=== PATIENT | male | born 1980 | race Caucasian/White ===

== ENCOUNTER 2019-02-11 12:29 | Emergency (ER) | payer OTHER ==
[2019-02-11 12:39] VITALS: BP 122/81
[2019-02-11] MEDS ORDERED: Ondansetron 4 MG/2 ML SDV IVPUSH ONE (12:55)
[2019-02-11] MEDS ORDERED: Sodium Chloride 0.9% 10 ML Syringe FLUSH PRN (12:55)
[2019-02-11] MEDS ORDERED: Ketorolac 30 MG/ML SDV IVPUSH ONE (12:55)
[2019-02-11] MEDS ORDERED: HYDROmorphone 0.5 MG/0.5 ML Syringe IVPUSH ONE (12:56)
[2019-02-11] MEDS ORDERED: Sodium Chloride 0.9% 1,000 ML IV SCH (13:00)
--- NOTE | 2019-02-11 13:01 | EDM.PDOC ---
ED HPI GENERAL MEDICAL PROBLEM - General Chief Complaint: Flank Pain Stated Complaint: POSSIBLE KINDNEY STONE Time Seen by Provider: 02/11/19 12:37 Source of Information: Reports: Patient History Limitations: Reports: No Limitations - History of Present Illness INITIAL COMMENTS - FREE TEXT/NARRATIVE: The patient presents with right flank pain that radiates to his right abdomen and right groin. He says it does sting when he urinates. He noticed no blood. He has no fever, chills, cough, nausea or vomiting. He has no diarrhea. He has no history of kidney stones. He has no other medical problems. Onset: Gradual Duration: Hour(s): Location: Reports: Abdomen (Right lower abdomen), Back (right flank) Quality: Reports: Sharp Severity: Severe Improves with: Reports: None Worsens with: Reports: None Associated Symptoms: Reports: Nausea/Vomiting. Denies: Chest Pain, Cough, Fever /Chills, Headaches, Shortness of Breath Treatments CHIEF WRITER: Reports: Other (see below) Other Treatments CHIEF WRITER: none Right Flank Pain Score (Numeric/FACES): 8 - Related Data Allergies Allergy/AdvReac Type Severity Reaction Status Date / Time No Known Allergies Allergy Verified 12/20/15 14:44 Home Meds: Home Meds Hydrocodone/Acetaminophen [Hydrocodon-Acetaminophen 5-325] 1 - 2 each PO Q6HR PRN #20 tablet 02/11/19 [Rx] Tamsulosin HCl [Flomax] 0.4 mg PO DAILY #7 cap.er.24h 02/11/19 [Rx] Past Medical History Musculoskeletal History: Reports: Other (See Below) Other Musculoskeletal History: left bicep repair - Past Surgical History HEENT Surgical History: Reports: Oral Surgery Other Musculoskeletal Surgeries/Procedures:: lumbar spine discetomy Social & Family History - Tobacco Use Smoking Status *Q: Current Every Day Smoker Years of Tobacco use: 20 Packs/Tins Daily: 0.3 - Caffeine Use Caffeine Use: Reports: Coffee - Recreational Drug Use Recreational Drug Use: No ED ROS GENERAL - Review of Systems Review Of Systems: See Below Constitutional: Reports: No Symptoms HEENT: Reports: No Symptoms Respiratory: Reports: No Symptoms Cardiovascular: Reports: No Symptoms Endocrine: Reports: No Symptoms GI/Abdominal: Reports: Abdominal Pain. Denies: Diarrhea, Nausea, Vomiting : Reports: Flank Pain (right flank) Musculoskeletal: Reports: Back Pain (right flank) ED EXAM, RENAL/ - Physical Exam Exam: See Below Exam Limited By: No Limitations General Appearance: Alert, No Apparent Distress Ears: Normal External Exam Nose: Normal Inspection Head: Atraumatic, Normocephalic Neck: Normal Inspection Respiratory/Chest: No Respiratory Distress, Lungs Clear, Normal Breath Sounds Cardiovascular: Regular Rate, Rhythm, No Edema, No Murmur GI/Abdominal: Soft, Non-Tender, No Organomegaly, No Mass Back Exam: CVA Tenderness (R) Extremities: Normal Inspection Course - Vital Signs Last Recorded V/S: Last Vital Signs Temp 97.8 F 02/11/19 12:36 Pulse 48 L 02/11/19 12:36 Resp 20 02/11/19 12:36 BP 122/81 02/11/19 12:36 Pulse Ox 99 02/11/19 12:36 - Orders/Labs/Meds Orders: Active Orders 24 hr Category Date Time Status Peripheral IV Care [RC] . DIRECTED Care 02/11/19 12:55 Active Sodium Chloride 0.9% [Normal Saline] 1,000 ml Med 02/11/19 13:00 Active IV ASDIRECTED Sodium Chloride 0.9% [Saline Flush] Med 02/11/19 12:55 Active 10 ml FLUSH ASDIRECTED PRN ED Antiemetic Medication Reflex [OM.PC] Stat Oth 02/11/19 12:55 Ordered Peripheral IV Insertion Adult [OM.PC] Stat Oth 02/11/19 12:55 Ordered Medication Orders Sodium Chloride (Normal Saline) 1,000 mls @ 125 mls/hr IV ASDIRECTED GIULIANA Last Admin: 02/11/19 13:03 Dose: 125 mls/hr Sodium Chloride (Saline Flush) 10 ml FLUSH ASDIRECTED PRN PRN Reason: Keep Vein Open Last Admin: 02/11/19 13:04 Dose: 10 ml Labs: Laboratory Tests 02/11/19 02/11/19 02/11/19 Range/Units 12:47 12:55 12:55 WBC 9.88 H (4.23-9.07) K/mm3 RBC 5.16 (4.63-6.08) M/mm3 Hgb 15.2 (13.7-17.5) gm/L Hct 45.1 (40.1-51.0) % MCV 87.4 (79.0-92.2) fl MCH 29.5 (25.7-32.2) pg MCHC 33.7 (32.2-35.5) g/dl RDW Std Deviation 40.6 (35.1-43.9) fL Plt Count 204 (163-337) K/mm3 MPV 10.6 (9.4-12.3) fl Neut % (Auto) 71.6 H (34.0-67.9) % Lymph % (Auto) 20.3 L (21.8-53.1) % [place] % (Auto) 6.4 (5.3-12.2) % Eos % (Auto) 1.3 (0.8-7.0) Baso % (Auto) 0.2 (0.1-1.2) % Neut # (Auto) 7.07 H (1.78-5.38) K/mm3 Lymph # (Auto) 2.01 (1.32-3.57) K/mm3 [place] # (Auto) 0.63 (0.30-0.82) K/mm3 Eos # (Auto) 0.13 (0.04-0.54) K/mm3 Baso # (Auto) 0.02 (0.01-0.08) K/mm3 Sodium 139 (136-145) mEq/L Potassium 4.0 (3.5-5.1) mEq/L Chloride 106 (98-107) mEq/L Carbon Dioxide 26 (21-32) mEq/L Anion Gap 11.0 (5-15) BUN 16 (7-18) mg/dL Creatinine 1.0 (0.7-1.3) mg/dL Est Cr Clr Drug Dosing 113.19 mL/min Estimated GFR (MDRD) > 60 (>60) mL/min BUN/Creatinine Ratio 16.0 (14-18) Glucose 90 (74-106) mg/dL Calcium 9.2 (8.5-10.1) mg/dL Total Bilirubin 0.5 (0.2-1.0) mg/dL AST 27 (15-37) U/L ALT 43 (16-63) U/L Alkaline Phosphatase 66 (46-116) U/L Total Protein 7.3 (6.4-8.2) g/dl Albumin 3.8 (3.4-5.0) g/dl Globulin 3.5 gm/dL Albumin/Globulin Ratio 1.1 (1-2) Lipase 114 (73-393) U/L Urine Color Yellow (Yellow) Urine Appearance Clear (Clear) Urine pH 5.5 (5.0-8.0) Ur Specific Pandora 1.025 (1.005-1.030) Urine Protein Negative (Negative) Urine Glucose (UA) Negative (Negative) Urine Ketones Negative (Negative) Urine Occult Blood 3+ H (Negative) Urine Nitrite Negative (Negative) Urine Bilirubin Negative (Negative) Urine Urobilinogen 0.2 (0.2-1.0) Ur Leukocyte Esterase Negative (Negative) Urine RBC 20-30 H (0-5) /hpf Urine WBC 0-5 (0-5) /hpf Ur Epithelial Cells Not seen (0-5) /hpf Urine Bacteria Moderate H (FEW) /hpf Urine Mucus Moderate H (FEW) /hpf Meds: Medications Generic Name Dose Route Start Last Admin Trade Name Freq PRN Reason Stop Dose Admin Sodium Chloride 1,000 mls @ 125 mls/hr 02/11/19 13:00 02/11/19 13:03 Normal Saline IV 125 mls/hr ASDIRECTED GIULIANA Administration Sodium Chloride 10 ml 02/11/19 12:55 02/11/19 13:04 Saline Flush FLUSH 10 ml ASDIRECTED PRN Administration Keep Vein Open Discontinued Medications Generic Name Dose Route Start Last Admin Trade Name Freq PRN Reason Stop Dose Admin Hydromorphone HCl 0.5 mg 02/11/19 12:56 02/11/19 13:04 Dilaudid IVPUSH 02/11/19 12:57 0.5 mg ONETIME ONE Administration Ketorolac Tromethamine 30 mg 02/11/19 12:55 02/11/19 13:04 Toradol IVPUSH 02/11/19 12:56 30 mg ONETIME ONE Administration Ondansetron HCl 4 mg 02/11/19 12:55 02/11/19 13:03 Zofran IVPUSH 02/11/19 12:56 4 mg ONETIME ONE Administration - Re-Assessments/Exams Free Text/Narrative Re-Assessment/Exam: 02/11/19 13:00 I ordered an IV NS at 125mL/hr, zofran 4mg IV, dilaudid 0.5mg IV, toradol 30mg IV, labs, UA and a CT of his abdomen and pelvis without contrast to look for a kidney stone. 02/11/19 14:14 His CBC and CMP look good. His UA shows blood but no UTI. His CT shows a stone in the right kidney and a small stone at the right side of the bladder and possibly in the bladder. He feels much better. I will discharge him home with flomax and hydrocodone for pain. Departure - Departure Time of Disposition: 14:15 Disposition: Home, Self-Care 01 Condition: Good Clinical Impression: Kidney stone on right side, Ureter colic, Ureteral calculus, right - Discharge Information *PRESCRIPTION DRUG MONITORING PROGRAM REVIEWED*: No *COPY OF PRESCRIPTION DRUG MONITORING REPORT IN PATIENT RAMILA: No Prescriptions: Hydrocodone/Acetaminophen [Hydrocodon-Acetaminophen 5-325] 1 - 2 each PO Q6HR PRN #20 tablet PRN Reason: Pain Tamsulosin HCl [Flomax] 0.4 mg PO DAILY #7 cap.er.24h Referrals: PCP,None [Primary Care Provider] - Forms: ED Department Discharge Additional Instructions: Drink plenty of fluids. Take the flomax daily until you pass the stone. Take the hydrocodone as needed for pain. Please return if you are worse. - My Orders Last 24 Hours: My Active Orders 02/11/19 12:55 Peripheral IV Care [RC] . DIRECTED Sodium Chloride 0.9% [Saline Flush] 10 ml FLUSH ASDIRECTED PRN ED Antiemetic Medication Reflex [OM.PC] Stat Peripheral IV Insertion Adult [OM.PC] Stat 02/11/19 13:00 Sodium Chloride 0.9% [Normal Saline] 1,000 ml IV ASDIRECTED - Assessment/Plan Last 24 Hours: My Active Orders 02/11/19 12:55 Peripheral IV Care [RC] . DIRECTED Sodium Chloride 0.9% [Saline Flush] 10 ml FLUSH ASDIRECTED PRN ED Antiemetic Medication Reflex [OM.PC] Stat Peripheral IV Insertion Adult [OM.PC] Stat 02/11/19 13:00 Sodium Chloride 0.9% [Normal Saline] 1,000 ml IV ASDIRECTED
--- NOTE | 2019-02-11 13:53 | CT ---
CT abdomen and pelvis Technique: Multiple axial sections were obtained from above the kidneys inferiorly through the pubic symphysis. Intravenous and oral contrast not utilized. Study has been performed as a ureteral stone protocol. Findings: Right ureter is mildly prominent in size. This occurs down to the UVJ. Small calcification is noted measuring about 2.1 mm which is either located at the very distal UVJ or has migrated into the bladder. Small nonobstructing calculus noted within the lower right kidney measuring about 2-3 mm. No other abnormal calcifications are seen within the kidneys or within the ureters. Other findings: Small portion of the visualized lung bases are clear. Visualized noncontrast appearance of the liver appears unremarkable. Gallbladder contains no calcified gallstones. Spleen appears within normal limits. Adrenal glands show no nodule. Pancreas is within normal limits. Aorta shows no aneurysm. No retroperitoneal adenopathy or mesenteric abnormalities are seen. No pelvic mass or adenopathy is seen. Appendix is seen which is normal in size. No free fluid or inflammatory change is seen. Bone window settings were reviewed which show disc space narrowing and vacuum phenomena within the L5-S1 disc. Impression: 1. Dilated ureter down to the UVJ. Small calcification either within the distal UVJ or has migrated into the bladder. 2. Small nonobstructing calculus within the lower right kidney. 3. No additional abnormality is appreciated on noncontrast CT study of the abdomen or pelvis. Diagnostic code #3
== END 2019-02-11 14:29 | disposition home or self-care (01) ==
LOC: JD.ED 12:29
DX: N20.2 Calculus of kidney with calculus of ureter (principal); F17.210 Nicotine dependence, cigarettes, uncomplicated; Z79.899 Other long term (current) drug therapy
CPT/HCPCS: 36415; 74176; 80053; 81001; 83690; 85025; 96361; 96374; 96375; 99284; J1170; J1885; J2405; J7040